=== PATIENT | male | born 1970 ===

== ENCOUNTER → 2019-01-12 | Outpatient (CLI) | payer OTHER ==
--- NOTE | 2019-01-12 15:52 | Diagnostic Imaging Report ---
Indication: Bilateral flank pain Technique: Grayscale and duplex images of the kidneys, retroperitoneum, and bladder were obtained. Comparison: none Findings: Right kidney measures 12.4 cm in length. Left kidney measures 12.9 cm in length. Both kidneys demonstrate normal echogenicity. No hydronephrosis. Cysts are demonstrated in the kidneys bilaterally. Punctate echogenic foci are seen in the renal sinuses bilaterally. Normal inferior vena cava. Bladder is normal, volume and time of exam 78 mL. Impression: Negative for incidentally noted hydronephrosis Punctate echogenic foci in the renal sinuses, may represent small nonobstructive calculi. Could also represent arterial calcifications or could be artifactual Bilateral renal cysts incidentally noted.
--- NOTE | 2019-01-12 16:00 | Diagnostic Imaging Report ---
Indication: Left axillary pain and palpable mass Technique: Grayscale and duplex images of the left axilla Comparison: none Findings: Corresponding to palpable abnormality in the left axilla is a 12 x 6 x 9 mm fairly superficial hypoechoic structure. No definite internal vascularity is demonstrated. On the short axis images, particularly the cine images, there is suggestion of a fatty hilum. This appears to be hypovascular Impression: 12 x 6 x 9 mm hypoechoic structure superficial in the left axilla apparently corresponding to palpable abnormality. Appearance is somewhat suggestive of but not conclusive for a lymph node. This could conceivably also represent a small abscess, but features do not suggest such
== END | disposition home or self-care (01) ==
LOC: ULS 13:52
DX: M79.622 Pain in left upper arm (principal); N28.1 Cyst of kidney, acquired; R10.9 Unspecified abdominal pain
CPT/HCPCS: 76770